=== PATIENT | female | born 1955 | race Caucasian/White ===

== ENCOUNTER 2017-10-23 18:43 | Emergency (ER) | payer SELFPAY ==
[~2017-10-23] VITALS: Ht 154.9 cm; Wt 58.0 kg
[2017-10-23 19:13] VITALS: BP 171/75
[2017-10-23] MEDS ORDERED: IBUPROFEN 600MG TABLET PO ONE (19:15)
== END 2017-10-23 23:12 | disposition home or self-care (01) ==
LOC: ER 20:20
DX: M79.661 Pain in right lower leg (principal); E78.00 Pure hypercholesterolemia, unspecified; E11.9 Type 2 diabetes mellitus without complications; I10 Essential (primary) hypertension; W19.XXXA Unspecified fall, initial encounter; Y93.89 Activity, other specified; Y92.89 Other specified places as the place of occurrence of the external cause; Y99.8 Other external cause status
CPT/HCPCS: 73590; 93971; 99284